=== PATIENT | male | born 1955 | race Caucasian/White ===

== ENCOUNTER 2020-03-27 11:49 | Observation (INO) ==
[2020-03-27 12:21] LABS: Basophils % 0.8 %; Eosinophils % 0.6 %; Hematocrit 38.1 % (37.5-50.1); Hemoglobin 13.1 g/dL (12.9-16.9); Immature Granulocytes % 0.2 % (0-4); Lymphocytes % 19.3 %; Mean Corpuscular HGB Conc 34.4 g/dL (31.6-35.5); Mean Corpuscular Hemoglobin 31.4 pg (28.0-33.3); Mean Corpuscular Volume 91.4 fL (83.0-100.0); Mean Platelet Volume 9.1 fL (9.4-12.4); Monocytes # 0.5 K/mcL (0.0-1.3); Monocytes % 9.2 %; Neutrophils # 3.7 K/mcL (1.6-8.9); Platelet Count 364 K/mcL (140-400); Red Blood Count 4.17 M/mcL (4.19-5.50); Red Cell Distribution Width 11.9 % (11.5-14.5); Segmented Neutrophils % 69.9 %; White Blood Count 5.2 K/mcL (4.3-11.1)
[2020-03-27 12:44] LABS: Acetaminophen < 10 mcg/mL (10-20); BUN/Creatinine Ratio 15 (6-26); Blood Urea Nitrogen 15 mg/dL (8-23); Carbon Dioxide 25 mEq/L (23-29); Chloride 96 mEq/L (98-107); Chol/HDL Ratio 3.6 (0-4.9); Cholesterol 185 mg/dL (< 200); Ethanol < 10 mg/dL (Less than 10); Glucose 147 mg/dL (70-105); HDL Cholesterol 52 mg/dL (40-59); LDL Cholesterol,Calculated 92 mg/dL (< 100); Osmolality,Calculated 274 (280-300); Potassium 4.1 mEq/L (3.5-5.1); Salicylate < 2.5 mg/dL (15.0-30.0); Sodium 130 mEq/L (136-145); Triglycerides 205 mg/dL (< 150); eGFR For African Americans > 60 (> 60); eGFR For Non-African Americans > 60 (> 60)
[2020-03-27 13:26] LABS: Estimated Average Glucose 134 mg/dl; Hemoglobin A1C 6.3 %
[2020-03-27 14:29] LABS: Bilirubin,Urine Negative (Negative); Blood,Urine Negative (Negative); Clarity,Urine Clear (Clear); Color,Urine Light-Yellow (Yellow); Glucose,Urine (UA) Normal (Normal); Ketones,Urine Negative (Negative); Leukocyte Esterase,Urine Negative (Negative); Nitrite,Urine Negative (Negative); PH,Urine 5.5 pH Units (5.0-8.0); Protein,Urine Negative (Neg-Trace); Specific Gravity,Urine 1.018 (1.010-1.025); Urobilinogen,Urine Normal (Normal)
[2020-03-27 14:40] LABS: Amphetamine Screen,Urine Negative ng/mL (Cutoff=1000); Barbiturate Screen,Urine Negative ng/mL (Cutoff=200); Benzodiazepines Screen,Urine Negative ng/mL (Cutoff=200); Cannabinoid Screen,Urine Negative ng/mL (Cutoff = 50); Cocaine Screen,Urine Negative ng/mL (Cutoff= 300); Opiate Screen,Urine Negative ng/mL (Cutoff=300); Phencyclidine Screen,Urine Negative ng/mL (Cutoff=25)
[2020-03-27] MEDS ORDERED: *HR* LORazepam 1 MG TABLET PO PRN (17:02)
[2020-03-27] MEDS ORDERED: traZODone 50 MG TABLET PO PRN (17:02)
[2020-03-27] MEDS ORDERED: MOM Conc 10 ML UD.LIQ PO PRN (17:02)
[2020-03-27] MEDS ORDERED: *HR* LORazepam 2 MG/ML VIAL IM PRN (17:02)
[2020-03-27] MEDS ORDERED: Haloperidol Lactate 5 MG/ML VIAL IM PRN (17:02)
[2020-03-27] MEDS ORDERED: haloperidoL 5 MG TABLET PO PRN (17:02)
[2020-03-27] MEDS ORDERED: Mag Hydrox/Al Hydrox/Simeth 30 ML UDC PO PRN (17:02)
[2020-03-27] MEDS: Ibuprofen 400 MG TABLET PO PRN (21:39)
[2020-03-27] MEDS: hydrOXYzine pamoate 25 MG CAPSULE PO PRN (22:00)
[2020-03-28] MEDS: hydrOXYzine pamoate 25 MG CAPSULE PO PRN (05:15)
[2020-03-28] MEDS: Lisinopril-HCTZ 20-12.5mg TABLET PO SCH (09:55)
[2020-03-28] MEDS: Loratadine 10 MG TABLET PO SCH (09:55)
[2020-03-28] MEDS ORDERED: Loratadine 10 MG TABLET PO PRN (12:22)
[2020-03-28] MEDS: Ibuprofen 400 MG TABLET PO PRN (14:44)
[2020-03-28] MEDS: hydrOXYzine pamoate 25 MG CAPSULE PO SCH ×2 (14:44→20:43)
[2020-03-28] MEDS: Oxymetazoline Nasal SPRAY BOTTLE NS PRN (20:42)
[2020-03-28] MEDS ORDERED: Mirtazapine 15 MG TABLET PO SCH (21:00)
[2020-03-28] MEDS ORDERED: traZODone 50 MG TABLET PO SCH (21:00)
[2020-03-29] MEDS: Loratadine 10 MG TABLET PO SCH (08:19)
[2020-03-29] MEDS: Lisinopril-HCTZ 20-12.5mg TABLET PO SCH (08:20)
[2020-03-29] MEDS: hydrOXYzine pamoate 25 MG CAPSULE PO SCH ×2 (08:20→14:55)
[2020-03-29 09:58] VITALS: BP 148/65
[2020-03-29] MEDS: Oxymetazoline Nasal SPRAY BOTTLE NS PRN (10:47)
== END 2020-03-29 17:55 | disposition home or self-care (01) ==
LOC: 1ANU 11:49 → EMEROOARM 11:49 → 1ANU 17:45
PROVIDERS: ADMIT Psychiatry & Neurology Forensic Psychiatry; ATTEND Psychiatry & Neurology Forensic Psychiatry